=== PATIENT | male | born 1965 | race Caucasian/White ===

== ENCOUNTER 2022-09-16 11:16 | Emergency (ER) | payer MEDICAID ==
[~2022-09-16] VITALS: Ht 175.3 cm; Wt 86.2 kg
[2022-09-16] MEDS ORDERED: [UNRECOGNIZED DRUG - OTHER] (11:40)
[2022-09-16] MEDS ORDERED: PREG50CA PO (11:40)
[2022-09-16] MEDS ORDERED: GLIP10TA11 PO (11:40)
[2022-09-16] MEDS ORDERED: METF-440 PO (11:40)
[2022-09-16] MEDS ORDERED: ASPI-1165 PO (11:40)
[2022-09-16] MEDS ORDERED: TAMS-3 PO (11:40)
[2022-09-16 11:59] LABS: *BLOOD, URINE LARGE (NEGATIVE); *CLARITY,URINE TURBID (CLEAR); *COLOR,URINE RED (YELLOW)
[2022-09-16 12:09] LABS: HEMATOCRIT 49.3 % (36.7-47.1); MEAN CORPUSCULAR HEMOGLOBIN 30.2 uug (23.8-33.4); MEAN CORPUSCULAR VOLUME 89.1 fL (73.0-96.2); PLATELET COUNT (AUTO) 244 K/uL (152-348)
[2022-09-16 12:29] LABS: BILIRUBIN,DIRECT 0.1 mg/dL (0.0-0.2); BILIRUBIN,TOTAL 0.6 mg/dL (0.2-1.0); POTASSIUM 4.3 mmol/L (3.5-5.1); TOTAL PROTEIN, SERUM 7.5 g/dL (6.4-8.2)
[2022-09-16] MEDS ORDERED: IV NS 1000 ML 1,000 ML IV ONE (13:15)
[2022-09-16 14:33] VITALS: BP 119/72
[2022-09-16 15:21] LABS: BACTERIA,URINE FEW /HPF (NONE SEEN); SQUAMOUS EPITHELIAL CELL,UR FEW /HPF (NONE SEEN)
[2022-09-16 15:22] LABS: RBC,URINE TNTC /HPF (0-3)
== END 2022-09-16 14:35 | disposition home or self-care (01) ==
LOC: ER 11:16
DX: R31.0 Gross hematuria (principal); G43.909 Migraine, unspecified, not intractable, without status migrainosus; K21.9 Gastro-esophageal reflux disease without esophagitis; E11.9 Type 2 diabetes mellitus without complications; Z79.82 Long term (current) use of aspirin; Z79.899 Other long term (current) drug therapy
CPT/HCPCS: 36415; 85025; 85730; A4663; J7040

== ENCOUNTER 2023-04-23 15:13 | Emergency (ER) | payer MEDICAID ==
[~2023-04-23] VITALS: Ht 175.3 cm; Wt 82.6 kg
[~2023-04-23 15:13] MED LIST: ASPI-1165 PO; GLIP10TA11 PO; METF-440 PO; PREG50CA PO; TAMS-3 PO; [UNRECOGNIZED DRUG - OTHER]
[2023-04-23] MEDS ORDERED: ATOR20TA PO (15:26)
[2023-04-23] MEDS ORDERED: EMPA25TA PO (15:26)
[2023-04-23] MEDS ORDERED: IV NORMAL SALINE 1000 ML BAG IV ONE (15:45)
[2023-04-23] MEDS ORDERED: KETOROLAC TROMETHAMINE 15 MG INJ IVP ONE (16:00)
[2023-04-23 16:10] LABS: *BILIRUBIN,URIN NEGATIVE (NEGATIVE); *BLOOD, URINE 1+ (NEGATIVE); *CLARITY,URINE CLEAR (CLEAR); *COLOR,URINE YELLOW (YELLOW); *KETONES,URINE NEGATIVE (NEGATIVE); *PROTEIN,URINE NEGATIVE (NEGATIVE); *UROBILINOGEN,URINE 0.2 E.U./dl (NORMAL); LEUKOCYTE ESTERASE ,URINE NEGATIVE (NEGATIVE); NITRITE, URINE NEGATIVE (NEGATIVE); PH,URINE 5.5 (5.0-8.0)
[2023-04-23 16:16] LABS: UGLUCOSE 2+ (NEGATIVE)
[2023-04-23] MEDS ORDERED: METRONIDAZOLE 500 MG TABLET ONE (16:36)
[2023-04-23] MEDS ORDERED: CIPROFLOXACIN HCL 250 MG TABLET ONE (16:36)
[2023-04-23] MEDS ORDERED: DIPH1TAB PO (16:37)
[2023-04-23] MEDS ORDERED: CIPR-262 PO (16:37)
[2023-04-23] MEDS ORDERED: METR500T PO (16:37)
[2023-04-23 16:38] LABS: CALCIUM 8.9 mg/dL (8.5-10.1); CARBON DIOXIDE 25 mmol/L (21-32); CHLORIDE 106 mmol/L (98-107); CREATININE 1.2 mg/dL (0.6-1.3); GLUCOSE 162 mg/dL (74-106); POTASSIUM 4.1 mmol/L (3.5-5.1); SODIUM SERUM 136 mmol/L (136-145); UREA NITROGEN, BLOOD 19 mg/dL (7-18)
[2023-04-23 16:39] LABS: BASOPHILS # (AUTO) 0.1 K/UL (0.0-0.2); BASOPHILS % (AUTO) 0.4 % (0.0-2.0); EOSINOPHILS % (AUTO) 0.2 % (0.0-7.0); HEMATOCRIT 47.9 % (36.7-47.1); HEMOGLOBIN 16.5 g/dL (12.5-16.3); LYMPHOCYTES # (AUTO) 1.1 K/uL (0.8-4.8); LYMPHOCYTES % (AUTO) 8.4 % (20.5-51.5); MEAN CORPUSCULAR HEMOGLOBIN 30.5 uug (23.8-33.4); MEAN CORPUSCULAR HGB CONC 34 g/dL (32.5-36.3); MEAN CORPUSCULAR VOLUME 88.7 fL (73.0-96.2); MONOCYTES # (AUTO) 0.9 K/uL (0.1-1.30); MONOCYTES % (AUTO) 6.9 % (0.0-11.0); NEUTROPHILS # (AUTO) 10.9 K/uL (1.8-8.9); NEUTROPHILS % (AUTO) 84.1 % (38.5-71.5); PLATELET COUNT (AUTO) 240 K/uL (152-348); RED CELL DISTRIBUTION WIDTH 15.1 % (12.1-16.2)
[2023-04-23 16:41] LABS: BACTERIA,URINE FEW /HPF (NONE SEEN); SQUAMOUS EPITHELIAL CELL,UR FEW /HPF (NONE SEEN); WBC,URINE 0-3 /HPF (0-3)
[2023-04-23 16:43] LABS: DIFFERENTIAL COMMENT 1
[2023-04-23] MEDS ORDERED: CIPROFLOXACIN HCL 250 MG TABLET PO ONE (16:45)
[2023-04-23] MEDS ORDERED: METRONIDAZOLE 500 MG TABLET PO ONE (16:45)
[2023-04-23 16:46] VITALS: BP 122/70; TEMP 98; O2SAT 99
[2023-04-23 16:50] LABS: ALANINE AMINOTRANSFERASE 20 U/L (16-63); ALBUMIN 3.7 g/dL (3.4-5.0); ALKALINE PHOSPHATASE 107 U/L (50-136); ASPARTATE AMINOTRANSFERASE 12 U/L (15-37); BILIRUBIN,DIRECT 0.2 mg/dL (0.0-0.2); BILIRUBIN,TOTAL 0.8 mg/dL (0.2-1.0); LIPASE 27 U/L (16-77); TOTAL PROTEIN, SERUM 6.9 g/dL (6.4-8.2)
== END 2023-04-23 16:47 | disposition home or self-care (01) ==
LOC: ER 15:18
DX: K52.89 Other specified noninfective gastroenteritis and colitis (principal); G43.909 Migraine, unspecified, not intractable, without status migrainosus; K21.9 Gastro-esophageal reflux disease without esophagitis; F41.9 Anxiety disorder, unspecified; E11.9 Type 2 diabetes mellitus without complications; Z20.822 Contact with and (suspected) exposure to COVID-19; Z79.82 Long term (current) use of aspirin; Z79.899 Other long term (current) drug therapy; Z60.2 Problems related to living alone
CPT/HCPCS: 36415; 83690; 84484; 85025; 89055; A4606; A4663

== ENCOUNTER 2023-05-10 10:45 | Emergency (ER) | payer MEDICAID, OTHER ==
[~2023-05-10] VITALS: Ht 172.7 cm; Wt 81.6 kg
[~2023-05-10 10:45] MED LIST changes: -ASPI-1165 PO; +ATOR20TA PO; +CIPR-262 PO; +DIPH1TAB PO; +EMPA25TA PO; -METF-440 PO; +METR500T PO; -PREG50CA PO; -[UNRECOGNIZED DRUG - OTHER]
[2023-05-10] MEDS ORDERED: KETOROLAC TROMETHAMINE 15 MG INJ IVP ONE (11:00)
[2023-05-10] MEDS ORDERED: IV NORMAL SALINE 1000 ML BAG IV ONE (11:00)
[2023-05-10] MEDS ORDERED: KETOROLAC TROMETHAMINE 30 MG INJ ONE (11:17)
[2023-05-10 11:31] LABS: *BILIRUBIN,URIN NEGATIVE (NEGATIVE); *BLOOD, URINE 3+ (NEGATIVE); *CLARITY,URINE CLEAR (CLEAR); *COLOR,URINE YELLOW (YELLOW); *KETONES,URINE NEGATIVE (NEGATIVE); *PROTEIN,URINE TRACE (NEGATIVE); *UROBILINOGEN,URINE 0.2 E.U./dl (NORMAL); BASOPHILS % (AUTO) 0.5 % (0.0-2.0); EOSINOPHILS # (AUTO) 0.1 K/uL (0.0-0.7); EOSINOPHILS % (AUTO) 0.5 % (0.0-7.0); HEMATOCRIT 49.5 % (36.7-47.1); HEMOGLOBIN 16.8 g/dL (12.5-16.3); LEUKOCYTE ESTERASE ,URINE NEGATIVE (NEGATIVE); LYMPHOCYTES # (AUTO) 1.2 K/uL (0.8-4.8); LYMPHOCYTES % (AUTO) 11.5 % (20.5-51.5); MEAN CORPUSCULAR HEMOGLOBIN 30.5 uug (23.8-33.4); MEAN CORPUSCULAR HGB CONC 34 g/dL (32.5-36.3); MEAN CORPUSCULAR VOLUME 89.6 fL (73.0-96.2); MONOCYTES # (AUTO) 0.9 K/uL (0.1-1.30); MONOCYTES % (AUTO) 9.2 % (0.0-11.0); NEUTROPHILS # (AUTO) 7.9 K/uL (1.8-8.9); NEUTROPHILS % (AUTO) 78.3 % (38.5-71.5); NITRITE, URINE NEGATIVE (NEGATIVE); PLATELET COUNT (AUTO) 262 K/uL (152-348); RED BLOOD CELL COUNT(AUTO) 5.52 MIL/uL (4.06-5.63); RED CELL DISTRIBUTION WIDTH 15.4 % (12.1-16.2); WHITE BLOOD COUNT (AUTO) 10.1 K/uL (3.6-10.2)
[2023-05-10 11:36] LABS: DIFFERENTIAL COMMENT 1
[2023-05-10 11:37] LABS: UGLUCOSE 3+ (NEGATIVE)
[2023-05-10 11:46] LABS: CALCIUM 9.4 mg/dL (8.5-10.1); CREATININE 0.8 mg/dL (0.6-1.3)
[2023-05-10] MEDS ORDERED: SWABABLE VALVE TRANSFER SET EA MC ONE (11:46)
[2023-05-10] MEDS ORDERED: IV NORMAL SALINE 250 ML IV ONE (11:46)
[2023-05-10] MEDS ORDERED: IOHEXOL 300MG/ML 100 ML INFUS..BTL ONE (11:46)
[2023-05-10 11:52] LABS: ALBUMIN 4.1 g/dL (3.4-5.0); BILIRUBIN,DIRECT 0.2 mg/dL (0.0-0.2); TOTAL PROTEIN, SERUM 7.8 g/dL (6.4-8.2)
[2023-05-10 11:53] LABS: BACTERIA,URINE FEW /HPF (NONE SEEN); RBC,URINE 80-100 /HPF (0-3); WBC,URINE 0-3 /HPF (0-3)
[2023-05-10] MEDS ORDERED: DICY10CA13 PO (13:03)
[2023-05-10 13:12] VITALS: BP 124/83; O2SAT 96
== END 2023-05-10 13:12 | disposition home or self-care (01) ==
LOC: ER 10:45
DX: R31.9 Hematuria, unspecified (principal); R10.31 Right lower quadrant pain; G43.909 Migraine, unspecified, not intractable, without status migrainosus; I10 Essential (primary) hypertension; K21.9 Gastro-esophageal reflux disease without esophagitis; E11.9 Type 2 diabetes mellitus without complications; Z79.2 Long term (current) use of antibiotics; Z79.899 Other long term (current) drug therapy
CPT/HCPCS: 99285; 74177; 96374; 96361; 80076; 80048; 81001; 83690; 85025; 36415; J1885; Q9967; J7040; A4606; A4663

== ENCOUNTER 2023-06-24 13:00 | Emergency (ER) | payer OTHER ==
[~2023-06-24] VITALS: Ht 175.3 cm; Wt 78.0 kg
[~2023-06-24 13:00] MED LIST changes: +DICY10CA13 PO
[2023-06-24 13:08] VITALS: O2SAT 98
== END 2023-06-24 14:16 | disposition left against medical advice (07) ==
LOC: ER 13:00
DX: R10.9 Unspecified abdominal pain (principal); Z53.21 Procedure and treatment not carried out due to patient leaving prior to being seen by health care provider
CPT/HCPCS: A4606; A4663

== ENCOUNTER 2023-09-24 09:20 | Emergency (ER) | payer MEDICAID, OTHER ==
[~2023-09-24] VITALS: Ht 175.3 cm; Wt 80.7 kg
[2023-09-24] MEDS ORDERED: SULF-11 PO (09:53)
[2023-09-24 10:02] LABS: BASOPHILS % (AUTO) 0.4 % (0.0-2.0); EOSINOPHILS # (AUTO) 0.3 K/uL (0.0-0.7); HEMOGLOBIN 16.7 g/dL (12.5-16.3); LYMPHOCYTES # (AUTO) 1.1 K/uL (0.8-4.8); LYMPHOCYTES % (AUTO) 12.9 % (20.5-51.5); MEAN CORPUSCULAR HEMOGLOBIN 30.1 uug (23.8-33.4); MEAN CORPUSCULAR HGB CONC 34 g/dL (32.5-36.3); MEAN CORPUSCULAR VOLUME 88.5 fL (73.0-96.2); MONOCYTES # (AUTO) 0.3 K/uL (0.1-1.30); MONOCYTES % (AUTO) 3.7 % (0.0-11.0); PLATELET COUNT (AUTO) 242 K/uL (152-348); RED BLOOD CELL COUNT(AUTO) 5.54 MIL/uL (4.06-5.63); RED CELL DISTRIBUTION WIDTH 14.5 % (12.1-16.2); WHITE BLOOD COUNT (AUTO) 8.8 K/uL (3.6-10.2)
[2023-09-24 10:02] LABS: *BILIRUBIN,URIN NEGATIVE (NEGATIVE); *CLARITY,URINE CLEAR (CLEAR); *COLOR,URINE YELLOW (YELLOW); *KETONES,URINE NEGATIVE (NEGATIVE); *PROTEIN,URINE NEGATIVE (NEGATIVE); *UROBILINOGEN,URINE 0.2 E.U./dl (NORMAL); LEUKOCYTE ESTERASE ,URINE NEGATIVE (NEGATIVE); NITRITE, URINE NEGATIVE (NEGATIVE)
[2023-09-24 10:11] LABS: CALCIUM 8.8 mg/dL (8.5-10.1); CREATININE 0.9 mg/dL (0.6-1.3); POTASSIUM 4.1 mmol/L (3.5-5.1)
[2023-09-24 10:14] LABS: *BLOOD, URINE TRACE (NEGATIVE); UGLUCOSE 2+ (NEGATIVE)
[2023-09-24 10:14] LABS: DIFFERENTIAL COMMENT 1
[2023-09-24 10:17] LABS: ALBUMIN 4.1 g/dL (3.4-5.0); BILIRUBIN,DIRECT 0.2 mg/dL (0.0-0.2); BILIRUBIN,TOTAL 0.6 mg/dL (0.2-1.0); TOTAL PROTEIN, SERUM 7.6 g/dL (6.4-8.2)
[2023-09-24 10:40] LABS: BACTERIA,URINE FEW /HPF (NONE SEEN); YEAST,URINE RARE /HPF (NONE SEEN)
[2023-09-24 11:45] VITALS: O2SAT 97
== END 2023-09-24 11:59 | disposition home or self-care (01) ==
LOC: ER 09:20
DX: N39.0 Urinary tract infection, site not specified (principal); R10.30 Lower abdominal pain, unspecified; G43.909 Migraine, unspecified, not intractable, without status migrainosus; K21.9 Gastro-esophageal reflux disease without esophagitis; E11.9 Type 2 diabetes mellitus without complications; Z79.899 Other long term (current) drug therapy; Z60.2 Problems related to living alone
CPT/HCPCS: 36415; 83690; 85025; A4606; A4663

== ENCOUNTER 2023-09-29 13:03 | Emergency (ER) | payer MEDICAID, OTHER ==
[~2023-09-29] VITALS: Ht 175.3 cm; Wt 80.3 kg
[~2023-09-29 13:03] MED LIST changes: -CIPR-262 PO; -DICY10CA13 PO; -DIPH1TAB PO; -METR500T PO; +SULF-11 PO
[2023-09-29] MEDS ORDERED: LIDOCAINE HCL 1% 20 ML VIAL ONE (13:45)
[2023-09-29] MEDS: LIDOCAINE HCL 1% 20 ML VIAL TP ONE (14:14)
[2023-09-29] MEDS ORDERED: CEPH500C2 PO (14:47)
[2023-09-29] MEDS ORDERED: HYDR-3972 PO (14:47)
[2023-09-29] MEDS ORDERED: CEphaleXIN 500 MG CAPSULE ONE (14:57)
[2023-09-29] MEDS ORDERED: IBUPROFEN 400 MG TABLET ONE (14:58)
[2023-09-29] MEDS ORDERED: ACETAMINOPHEN ES 500 MG TABLET ONE (14:58)
[2023-09-29] MEDS: IBUPROFEN 400 MG TABLET PO ONE (15:01)
[2023-09-29] MEDS: CEphaleXIN 500 MG CAPSULE PO ONE (15:01)
[2023-09-29] MEDS: ACETAMINOPHEN 325 MG TABLET PO ONE (15:01)
[2023-09-29 15:52] VITALS: BP 136/75; TEMP 98.2; O2SAT 97
== END 2023-09-29 15:53 | disposition home or self-care (01) ==
LOC: ER 13:03
DX: S61.211A Laceration without foreign body of left index finger without damage to nail, initial encounter (principal); G43.909 Migraine, unspecified, not intractable, without status migrainosus; E11.9 Type 2 diabetes mellitus without complications; K21.9 Gastro-esophageal reflux disease without esophagitis; Z79.899 Other long term (current) drug therapy; Z60.2 Problems related to living alone; W45.8XXA Other foreign body or object entering through skin, initial encounter; Y93.89 Activity, other specified; Y92.89 Other specified places as the place of occurrence of the external cause; Y99.8 Other external cause status
CPT/HCPCS: 12001; 99284; J3490; A4606; A4663; A9150

== ENCOUNTER 2023-10-01 07:14 | Emergency (ER) | payer MEDICAID, OTHER ==
[~2023-10-01] VITALS: Ht 175.3 cm; Wt 80.3 kg
[~2023-10-01 07:14] MED LIST changes: +CEPH500C2 PO; +HYDR-3972 PO
[2023-10-01 07:18] VITALS: O2SAT 97
[2023-10-01] MEDS ORDERED: IBUP-1953 PO (07:38)
[2023-10-01] MEDS ORDERED: IBUPROFEN 800 MG TABLET ONE (07:47)
[2023-10-01] MEDS ORDERED: BACITRACIN ZINC OINT 15 GM TUBE ONE (07:47)
[2023-10-01] MEDS ORDERED: ACETAMINOPHEN ES 500 MG TABLET ONE (07:47)
[2023-10-01] MEDS: CEphaleXIN 500 MG CAPSULE PO ONE (07:48)
[2023-10-01] MEDS: IBUPROFEN 400 MG TABLET PO ONE (07:48)
[2023-10-01] MEDS: ACETAMINOPHEN 325 MG TABLET PO ONE (07:48)
[2023-10-01] MEDS ORDERED: CEphaleXIN 500 MG CAPSULE ONE (07:48)
[2023-10-01] MEDS: BACITRACIN ZINC OINT 15 GM TUBE TOP STA (07:48)
== END 2023-10-01 08:25 | disposition home or self-care (01) ==
LOC: ER 07:14
DX: S61.218D Laceration without foreign body of other finger without damage to nail, subsequent encounter (principal); Z48.00 Encounter for change or removal of nonsurgical wound dressing; G43.909 Migraine, unspecified, not intractable, without status migrainosus; E11.9 Type 2 diabetes mellitus without complications; K21.9 Gastro-esophageal reflux disease without esophagitis; Z79.899 Other long term (current) drug therapy; Z60.2 Problems related to living alone; Y92.89 Other specified places as the place of occurrence of the external cause
CPT/HCPCS: A4606; A4663; A9150

== ENCOUNTER 2023-10-07 09:25 | Emergency (ER) | payer MEDICAID, OTHER ==
[~2023-10-07] VITALS: Ht 175.3 cm; Wt 80.3 kg
[~2023-10-07 09:25] MED LIST changes: +IBUP-1953 PO
[2023-10-07 09:28] VITALS: O2SAT 97
== END 2023-10-07 10:23 | disposition home or self-care (01) ==
LOC: ER 09:25
DX: S61.211D Laceration without foreign body of left index finger without damage to nail, subsequent encounter (principal); G43.909 Migraine, unspecified, not intractable, without status migrainosus; K21.9 Gastro-esophageal reflux disease without esophagitis; E11.9 Type 2 diabetes mellitus without complications; Z79.899 Other long term (current) drug therapy; Z60.2 Problems related to living alone; X58.XXXD Exposure to other specified factors, subsequent encounter
CPT/HCPCS: A4606; A4663

== ENCOUNTER 2025-03-05 10:23 | Emergency (ER) | payer MEDICAID, OTHER ==
[~2025-03-05] VITALS: Ht 175.3 cm; Wt 77.1 kg
[2025-03-05] MEDS ORDERED: DULA0.75 SQ (10:51)
[2025-03-05] MEDS ORDERED: ATOR40TA PO (10:51)
[2025-03-05] MEDS ORDERED: OMEP40CA21 PO (10:51)
[2025-03-05] MEDS ORDERED: TADA20TA PO (10:51)
[2025-03-05] MEDS ORDERED: GABA300C PO (10:51)
[2025-03-05] MEDS ORDERED: LORA-259 PO (10:51)
[2025-03-05 11:03] LABS: PLATELET COUNT (AUTO) 228 K/uL (152-348); RED BLOOD CELL COUNT(AUTO) 5.80 MIL/uL (4.06-5.63); RED CELL DISTRIBUTION WIDTH 15.1 % (12.1-16.2); WHITE BLOOD COUNT (AUTO) 10.2 K/uL (3.6-10.2)
[2025-03-05 11:04] LABS: *BILIRUBIN,URIN NEGATIVE (NEGATIVE); *BLOOD, URINE NEGATIVE (NEGATIVE); *CLARITY,URINE CLEAR (CLEAR); *COLOR,URINE YELLOW (YELLOW); *KETONES,URINE NEGATIVE (NEGATIVE); *PROTEIN,URINE NEGATIVE (NEGATIVE); *UROBILINOGEN,URINE 0.2 E.U./dl (NORMAL); LEUKOCYTE ESTERASE ,URINE NEGATIVE (NEGATIVE); NITRITE, URINE NEGATIVE (NEGATIVE); UGLUCOSE 2+ (NEGATIVE)
[2025-03-05 11:11] LABS: CREATININE 0.9 mg/dL (0.6-1.3); SODIUM SERUM 140.0 mmol/L (136-145); UREA NITROGEN, BLOOD 22.0 mg/dL (7-18)
[2025-03-05 11:22] LABS: ASPARTATE AMINOTRANSFERASE 37.0 U/L (15-37); TOTAL PROTEIN, SERUM 7.7 g/dL (6.4-8.2)
[2025-03-05] MEDS: IV NS 1000 ML 1,000 ML IV PRN (11:34)
[2025-03-05] MEDS ORDERED: SWABABLE VALVE TRANSFER SET EA MC ONE (11:44)
[2025-03-05] MEDS ORDERED: IOHEXOL 300MG/ML 100 ML INFUS..BTL ONE (11:44)
[2025-03-05] MEDS ORDERED: IV NORMAL SALINE 250 ML IV ONE (11:44)
[2025-03-05 13:20] VITALS: BP 118/83; TEMP 98.7
[2025-03-05] MEDS ORDERED: TRAM50TA2 PO (13:26)
[2025-03-05 13:29] VITALS: BP 118/83; O2SAT 97
== END 2025-03-05 13:42 | disposition home or self-care (01) ==
LOC: ER 10:23
DX: R10.9 Unspecified abdominal pain (principal); E11.9 Type 2 diabetes mellitus without complications; D49.4 Neoplasm of unspecified behavior of bladder; F17.210 Nicotine dependence, cigarettes, uncomplicated; F41.9 Anxiety disorder, unspecified; N40.0 Benign prostatic hyperplasia without lower urinary tract symptoms; Z79.84 Long term (current) use of oral hypoglycemic drugs; Z79.899 Other long term (current) drug therapy
CPT/HCPCS: 36415; 83690; 85025; 85651; A4606; A4663; Q9967

== ENCOUNTER 2025-04-26 07:32 | Emergency (ER) | payer OTHER ==
[~2025-04-26] VITALS: Ht 175.3 cm; Wt 82.1 kg
[~2025-04-26 07:32] MED LIST changes: +ATOR40TA PO; +DULA0.75 SQ; +GABA300C PO; +LORA-259 PO; +OMEP40CA21 PO; +TADA20TA PO; +TRAM50TA2 PO
[2025-04-26 07:47] VITALS: BP 118/77
[2025-04-26] MEDS ORDERED: LIDOCAINE HCL 2% 20 ML VIAL ONE (08:00)
[2025-04-26] MEDS ORDERED: FLAS1KIT2 TP (08:41)
[2025-04-26] MEDS ORDERED: FLAS1EAC2 TP (08:41)
[2025-04-26 08:57] VITALS: BP 118/77; TEMP 98.2; O2SAT 96
== END 2025-04-26 08:58 | disposition home or self-care (01) ==
LOC: ER 07:32
DX: L03.011 Cellulitis of right finger (principal); E11.40 Type 2 diabetes mellitus with diabetic neuropathy, unspecified; F17.200 Nicotine dependence, unspecified, uncomplicated; F41.9 Anxiety disorder, unspecified; Z79.84 Long term (current) use of oral hypoglycemic drugs; Z79.899 Other long term (current) drug therapy; Z60.2 Problems related to living alone
CPT/HCPCS: 10060; 99282; J3490; A4606; A4663

== ENCOUNTER 2025-05-07 18:50 | Emergency (ER) | payer OTHER ==
[~2025-05-07] VITALS: Ht 170.2 cm; Wt 77.1 kg
[~2025-05-07 18:50] MED LIST changes: +FLAS1EAC2 TP; +FLAS1KIT2 TP; -GLIP10TA11 PO; +GLIP10TA18 PO; -TAMS-3 PO; +TAMS0.4C PO
[2025-05-07 18:55] VITALS: BP 130/73
[2025-05-07] MEDS ORDERED: HYDR-4209 PO (19:04)
[2025-05-07] MEDS ORDERED: SILV50CR32 TP (19:04)
[2025-05-07] MEDS ORDERED: IBUP-2760 PO (19:04)
[2025-05-07] MEDS ORDERED: NAPROXEN 500 MG TABLET ONE (19:09)
[2025-05-07] MEDS ORDERED: HYDROCODONE/APAP 5-325MG TABLET ONE (19:10)
[2025-05-07] MEDS: NAPROXEN 500 MG TABLET PO ONE (19:12)
[2025-05-07] MEDS: HYDROCODONE/APAP 5-325MG TABLET PO ONE (19:12)
[2025-05-07 19:30] VITALS: BP 126/71; O2SAT 98
== END 2025-05-07 19:31 | disposition home or self-care (01) ==
LOC: ER 18:57
DX: T22.151A Burn of first degree of right shoulder, initial encounter (principal); F17.200 Nicotine dependence, unspecified, uncomplicated; E11.9 Type 2 diabetes mellitus without complications; F41.9 Anxiety disorder, unspecified; Z79.84 Long term (current) use of oral hypoglycemic drugs; Z79.899 Other long term (current) drug therapy; Y92.89 Other specified places as the place of occurrence of the external cause
CPT/HCPCS: A4663